=== PATIENT | female | born 1955 | race Caucasian/White ===

== ENCOUNTER 2020-08-19 11:38 | Day surgery (SDC) | payer MEDICARE ==
[~2020-08-19] VITALS: Ht 160 cm; Wt 64.6 kg
[~2020-08-19 11:38] MED LIST: Aspirin EC81 MG; BIEST/PROGESTERONE PO; BIOTIN5 MG PO; CALCIUM 600 +1 EAC3; CALCIUM CIT 311 EACH PO; Cranberry300 MG PO; Dhea Tablet1 EACH PO; ESTRADIOL/PROGESTERO PO; ESTRIOL/TEST VAG; EUTHYROX88 MCG PO; FLAXSEED-FISH-400 MG PO; FOLI400; LIOT5 PO; MULTI VITAMIN1 EACH PO; MULTIPLE VITAM1 EACH PO; PROBIOTIC1 EA13 PO; PROBIOTIC1 EAC1 PO; PROG100 PO; VITAMIN D32000 UNIT PO; VITAMIN K240 MCG; VITAMINS; Vitamin B-Comp1 EAC7 PO; Vitamin K100 MCG; [UNRECOGNIZED DRUG - OTHER] PO
[2020-08-19] MEDS ORDERED: FISH OIL 1,2001 EAC7 (11:51)
== END 2020-08-19 13:34 | disposition home or self-care (01) ==
LOC: ORSCSDS 11:38
PROVIDERS: Surgery
PROC: 0DJD8ZZ Inspection of Lower Intestinal Tract, Via Natural or Artificial Opening Endoscopic (ICD-10-PCS; principal; 2020-08-19 13:00)
DX: Z12.11 Encounter for screening for malignant neoplasm of colon (principal); E03.9 Hypothyroidism, unspecified; Z79.82 Long term (current) use of aspirin; Z79.899 Other long term (current) drug therapy
CPT/HCPCS: J0461; J2405; J2704; J7120